=== PATIENT | male | born 1995 | race Caucasian/White ===

== ENCOUNTER 2016-08-26 12:30 | Emergency (ER) | payer SELFPAY ==
[~2016-08-26] VITALS: Ht 193 cm; Wt 158.8 kg
[~2016-08-26 12:30] MED LIST: TOBRADEX OPH SOL5 ML OD
[2016-08-26 12:35] VITALS: BP 166/110
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
== END 2016-08-26 15:00 ==
LOC: ERH 12:30
DX: S16.1XXA Strain of muscle, fascia and tendon at neck level, initial encounter (principal); S29.011A Strain of muscle and tendon of front wall of thorax, initial encounter; V49.50XA Passenger injured in collision with unspecified motor vehicles in traffic accident, initial encounter
CPT/HCPCS: 71100-LT